=== PATIENT | male | born 2000 | race Caucasian/White ===

== ENCOUNTER 2018-07-03 11:03 | Emergency (ER) | payer SELFPAY ==
--- NOTE | 2018-07-03 11:59 | EDM.PDOC ---
ED HPI GENERAL MEDICAL PROBLEM - General Chief Complaint: Syncope Stated Complaint: PASSED OUT Time Seen by Provider: 07/03/18 11:13 Source of Information: Reports: Patient, Family History Limitations: Reports: No Limitations - History of Present Illness INITIAL COMMENTS - FREE TEXT/NARRATIVE: 17 y.o.w.m came with his friend to the ed after he passed out for about 5 seconds. this is now the 3rd time. He was never seen by a medical Doctor for that, he denies a tongue bite an incontinence, no seizure activity. He does not pass out "when he sleeps". No N/V/D, no dizziness or any other acute medical issues. schaeffer s not smoke of drink. Does not use drugs. BP 144/87 RR 18 Pulse ox 99% on RA temp 37.1 Pulse 80 Onset Date: 07/03/18 Onset Time: 10:00 Duration: Minutes:, Intermittent Location: Reports: Generalized Quality: Reports: Other Severity: Mild Improves with: Reports: Rest Worsens with: Reports: None Context: Reports: Other (at rest) Associated Symptoms: Reports: No Other Symptoms R knee Pain Score (Numeric/FACES): 1 - Related Data Allergies Allergy/AdvReac Type Severity Reaction Status Date / Time Sulfa (Sulfonamide Allergy Cannot Verified 07/03/18 11:15 Antibiotics) Remember Home Meds: Home Meds NK [No Known Home Meds] 07/03/18 [History] Past Medical History Cardiovascular History: Reports: Syncope Gastrointestinal History: Reports: GERD Neurological History: Reports: Concussion, Headaches, Chronic, Migraines Psychiatric History: Reports: Depression - Past Surgical History HEENT Surgical History: Reports: Myringotomy w Tube(s), Oral Surgery Other HEENT Surgeries/Procedures: bilat tubes in ears Social & Family History - Family History Family Medical History: Noncontributory - Tobacco Use Smoking Status *Q: Never Smoker - Caffeine Use Caffeine Use: Reports: Coffee, Tea - Recreational Drug Use Recreational Drug Use: No ED ROS GENERAL - Review of Systems Review Of Systems: See Below Constitutional: Reports: No Symptoms HEENT: Reports: No Symptoms Respiratory: Reports: No Symptoms Cardiovascular: Reports: No Symptoms Endocrine: Reports: No Symptoms GI/Abdominal: Reports: No Symptoms : Reports: No Symptoms Musculoskeletal: Reports: No Symptoms Skin: Reports: No Symptoms Neurological: Reports: No Symptoms Psychiatric: Reports: No Symptoms Hematologic/Lymphatic: Reports: No Symptoms Immunologic: Reports: No Symptoms - Physical Exam Exam: See Below Exam Limited By: No Limitations General Appearance: Alert, WD/WN, No Apparent Distress Eye Exam: Bilateral Eye: Normal Inspection Ears: Normal External Exam, Normal Canal, Hearing Grossly Normal Nose: Normal Inspection, Normal Mucosa, No Blood Throat/Mouth: Normal Inspection, Normal Lips, Normal Teeth, Normal Gums, Normal Voice, No Airway Compromise Head Exam: Atraumatic, Normocephalic Neck: Normal Inspection, Supple, Non-Tender, Full Range of Motion Respiratory/Chest: No Respiratory Distress, Lungs Clear, Normal Breath Sounds, No Accessory Muscle Use, Chest Non-Tender Cardiovascular: Normal Peripheral Pulses, Regular Rate, Rhythm, No Edema, No Gallop, No JVD, No Murmur, No Rub GI/Abdominal: Normal Bowel Sounds, Soft, Non-Tender, No Organomegaly, No Distention, No Abnormal Bruit, No Mass, Pelvis Stable (Male) Exam: Deferred Rectal (Males) Exam: Deferred Neuro Exam (Abbreviated): Alert, Oriented, CN II-XII Intact, Normal Cognition, Normal Gait, Normal Reflexes, No Motor/Sensory Deficits DTR: 2+: Tricep (R) Back Exam: Normal Inspection, Full Range of Motion Extremities: Normal Inspection, Normal Range of Motion, Non-Tender, No Pedal Edema Psychiatric: Normal Affect, Normal Mood Skin Exam: Warm, Dry, Intact, Normal Color, No Rash EKG INTERPRETATION EKG Date: 07/03/18 Time: 11:45 Rhythm: NSR Rate (Beats/Min): 69 [place]: Normal P-Wave: Present QRS: Normal ST-T: Normal QT: Normal Comparison: NA - No Prior EKG Course - Vital Signs Text/Narrative:: 17 y.o.w.m came with his friend to the ed after he passed out for about 5 seconds. this is now the 3rd time. Pt is notising fast palpitations before he is passing out.. He was never seen by a medical Doctor for that, he denies a tongue bite an incontinence, no seizure activity. He does not pass out "when he sleeps". No N/V/D, no dizziness or any other acute medical issues. schaeffer s not smoke of drink. Does not use drugs. BP 144/87 RR 18 Pulse ox 99% on RA temp 37.1 Pulse 80 PE: WNWD W M in no discomfort, Nl Neuroexam. Orthostatic vitals: [place] nursing notes Labs: CBC, BMP nl UDS neg Imaging: CT head: NAD EKG: NSR. Rhythm stip showed a sinus rhythm with a rate form 50 to 120 Impression: Syncopal episodes, possible cardiac in origin. Tx: None in the ED 1.34pm Consultation: [facility]: Will place a 48 Holter monitor today and will follow up with the Cardiac clinic at [facility]. Reexam: Pt was stable in the ED Plan: D/C with instructions Last Recorded V/S: Last Vital Signs Temp 37.1 C 07/03/18 11:12 Pulse 79 07/03/18 13:56 Resp 18 07/03/18 13:56 BP 135/90 07/03/18 13:56 Pulse Ox 100 07/03/18 13:56 Orthostatic Blood Pressure [ 142/100 Standing] Orthostatic Blood Pressure [ 144/98 Sitting] Orthostatic Blood Pressure [ 144/87 Supine] - Orders/Labs/Meds Labs: Laboratory Tests 07/03/18 07/03/18 07/03/18 Range/Units 11:35 11:51 11:51 WBC 5.5 (4.5-12.0) X10-3/uL RBC 5.72 (4.30-5.75) x10(6)uL Hgb 17.1 H (11.5-15.5) g/dL Hct 50.0 (30.0-51.3) % MCV 87.5 (80-96) fL MCH 29.9 (27.7-33.6) pg MCHC 34.2 (32.2-35.4) g/dL RDW 12.1 (11.5-15.5) % Plt Count 351 (125-369) X10(3)uL MPV 7.4 (7.4-10.4) fL Neut % (Auto) 59.0 (46-82) % Lymph % (Auto) 27.6 (13-37) % [place] % (Auto) 8.9 (4-12) % Eos % (Auto) 4 (1.0-5.0) % Baso % (Auto) 1 (0-2) % Neut # (Auto) 3.3 (1.6-8.3) # Lymph # (Auto) 1.5 (0.6-5.0) # [place] # (Auto) 0.5 (0.0-1.3) # Eos # (Auto) 0.2 (0.0-0.8) # Baso # (Auto) 0.0 (0.0-0.2) # Sodium 139 (135-145) mmol/L Potassium 4.4 (3.5-5.3) mmol/L Chloride 100 (100-110) mmol/L Carbon Dioxide 31 (21-32) mmol/L BUN 12 (7-18) mg/dL Creatinine 1.0 (0.70-1.30) mg/dL Est Cr Clr Drug Dosing 111.08 mL/min Estimated GFR (MDRD) > 60 (>60) BUN/Creatinine Ratio 12.0 (9-20) Glucose 102 (80-116) mg/dL Calcium 9.8 (8.2-10.1) mg/dL Troponin I < 0.017 L (<0.017-0.056) ng/mL Urine Color (YELLOW) Urine Appearance (CLEAR) Urine pH (5.0-6.5) Ur Specific [place] (1.010-1.025) Urine Protein (NEGATIVE) mg/dL Urine Glucose (UA) (NEGATIVE) mg/dL Urine Ketones (NEGATIVE) mg/dL Urine Occult Blood (NEGATIVE) Urine Nitrite (NEGATIVE) Urine Bilirubin (NEGATIVE) Urine Urobilinogen (NEGATIVE) mg/dL Ur Leukocyte Esterase (NEGATIVE) Urine RBC (0) Urine WBC (0) Ur Squamous Epith Cells (NS,R,O) Urine Bacteria (NS) Urine Opiates Screen (NEGATIVE) Ur Oxycodone Screen (NEGATIVE) Ur Propoxyphene Screen (NEGATIVE) Ur Barbituates Screen (NEGATIVE) Ur Tricyclics Screen (NEGATIVE) Ur Phencyclidine Scrn (NEGATIVE) Ur Amphetamine Screen (NEGATIVE) Urine MDMA Screen (NEGATIVE) U Benzodiazepines Scrn (NEGATIVE) U Cocaine Metab Screen (NEGATIVE) U Marijuana (THC) Screen (NEGATIVE) 07/03/18 07/03/18 Range/Units 12:13 12:13 WBC (4.5-12.0) X10-3/uL RBC (4.30-5.75) x10(6)uL Hgb (11.5-15.5) g/dL Hct (30.0-51.3) % MCV (80-96) fL MCH (27.7-33.6) pg MCHC (32.2-35.4) g/dL RDW (11.5-15.5) % Plt Count (125-369) X10(3)uL MPV (7.4-10.4) fL Neut % (Auto) (46-82) % Lymph % (Auto) (13-37) % [place] % (Auto) (4-12) % Eos % (Auto) (1.0-5.0) % Baso % (Auto) (0-2) % Neut # (Auto) (1.6-8.3) # Lymph # (Auto) (0.6-5.0) # [place] # (Auto) (0.0-1.3) # Eos # (Auto) (0.0-0.8) # Baso # (Auto) (0.0-0.2) # Sodium (135-145) mmol/L Potassium (3.5-5.3) mmol/L Chloride (100-110) mmol/L Carbon Dioxide (21-32) mmol/L BUN (7-18) mg/dL Creatinine (0.70-1.30) mg/dL Est Cr Clr Drug Dosing mL/min Estimated GFR (MDRD) (>60) BUN/Creatinine Ratio (9-20) Glucose (80-116) mg/dL Calcium (8.2-10.1) mg/dL Troponin I (<0.017-0.056) ng/mL Urine Color Yellow (YELLOW) Urine Appearance Clear (CLEAR) Urine pH 7.0 H (5.0-6.5) Ur Specific [place] 1.010 (1.010-1.025) Urine Protein Negative (NEGATIVE) mg/dL Urine Glucose (UA) Normal (NEGATIVE) mg/dL Urine Ketones Negative (NEGATIVE) mg/dL Urine Occult Blood Negative (NEGATIVE) Urine Nitrite Negative (NEGATIVE) Urine Bilirubin Negative (NEGATIVE) Urine Urobilinogen Normal (NEGATIVE) mg/dL Ur Leukocyte Esterase Negative (NEGATIVE) Urine RBC 0-5 (0) Urine WBC 0-5 (0) Ur Squamous Epith Cells Occasional (NS,R,O) Urine Bacteria Rare H (NS) Urine Opiates Screen Negative (NEGATIVE) Ur Oxycodone Screen Negative (NEGATIVE) Ur Propoxyphene Screen Negative (NEGATIVE) Ur Barbituates Screen Negative (NEGATIVE) Ur Tricyclics Screen Negative (NEGATIVE) Ur Phencyclidine Scrn Negative (NEGATIVE) Ur Amphetamine Screen Negative (NEGATIVE) Urine MDMA Screen Negative (NEGATIVE) U Benzodiazepines Scrn Negative (NEGATIVE) U Cocaine Metab Screen Negative (NEGATIVE) U Marijuana (THC) Screen Negative (NEGATIVE) Departure - Departure Time of Disposition: 13:49 Disposition: Home, Self-Care 01 Condition: Good Clinical Impression: Syncopal episodes, Intermittent palpitations - Discharge Information Instructions: Syncope, [id number] Referrals: PCP,None [Primary Care Provider] - Forms: ED Department Discharge Additional Instructions: Please go straight to the [facility] Cardiology clinic at [address] [place] [address] in order to get a Holter monitor placed for 48 hours and further evaluation. Please come back to the ED if your symptoms get worse acutely
== END 2018-07-03 14:10 | disposition home or self-care (01) ==
LOC: FB.ED 11:03
DX: R55 Syncope and collapse (principal); R00.2 Palpitations; Z96.22 Myringotomy tube(s) status; Z88.2 Allergy status to sulfonamides; Z98.890 Other specified postprocedural states
CPT/HCPCS: 36415; 70450; 80048; 80305-QW; 81001; 84484; 85025; 93005; 99284